=== PATIENT | female | born 1940 | race Caucasian/White ===

== ENCOUNTER 2016-08-21 17:47 | Inpatient (IN) | payer MEDICARE, OTHER ==
[~2016-08-21] VITALS: Ht 165.1 cm; Wt 56.8 kg
[~2016-08-21 17:47] MED LIST: BACITRACIN 50,000 UNITS INJ IRRIG ONE; FENTANYL 100 MCG/2 ML AMP IV ONE; LIDOCAINE 2% SYR 5 ML IV ONE; ONDANSETRON 4 MG VIAL IV PUSH ONE; PROPOFOL 20 ML VIAL IV ONE; ROCURONIUM 50 MG VIAL IV ONE; SUGAMMADEX 200 MG/2 ML VIAL IV ONE
[2016-08-21] MEDS ORDERED: MAG HYDROX 30 ML UDC PO PRN (21:15)
[2016-08-21] MEDS ORDERED: ENOXAPARIN 40 MG/0.4 ML SYR SUBQ SCH (21:15)
[2016-08-21] MEDS ORDERED: SALINE FLUSH 10 ML FLUSH PRN (21:15)
[2016-08-21] MEDS ORDERED: BISACODYL 10 MG SUPP RECTAL PRN (21:15)
[2016-08-21] MEDS ORDERED: BISACODYL EC 5 MG TAB PO PRN (21:15)
[2016-08-21] MEDS ORDERED: ALU/MAG/SIM 30 ML UDC PO PRN (21:15)
[2016-08-21] MEDS ORDERED: TEMAZEPAM 7.5 MG CAP PO PRN (21:15)
[2016-08-21] MEDS: SALINE FLUSH 10 ML FLUSH SCH (21:15)
[2016-08-21] MEDS ORDERED: DEXTROSE 5% SALINE 0.9% 1,000 ML IV SCH (21:35)
[2016-08-21 22:25] VITALS: BP_SYST 151; TEMP 97.7; Ht 165.1 cm; Wt 56.8 kg
[2016-08-21 22:26] VITALS: RESP 20
[2016-08-21] MEDS: DOCUSATE SOD 100 MG CAP PO SCH (22:48)
[2016-08-21] MEDS: SODIUM CHLORIDE 0.9% FLUSH BAG 500 ML IV SCH (22:49)
[2016-08-21] MEDS: MORPHINE 2 MG/ML SYR IV PRN (23:11)
[2016-08-22] VITALS (19 sets, daily range): BP systolic 115–148; RESP 12–20; TEMP 97.3–99.2
[2016-08-22] MEDS: MORPHINE 2 MG/ML SYR IV PRN ×3 (05:55→22:12)
[2016-08-22] MEDS ORDERED: ONDANSETRON 4 MG VIAL ONE (06:41)
[2016-08-22] MEDS ORDERED: CEFAZOLIN 2,000 MG in SODIUM CHLORIDE 0.9% 100 ML IV ONE (07:10)
[2016-08-22] MEDS: SALINE FLUSH 10 ML FLUSH SCH ×3 (08:00→20:00)
[2016-08-22] MEDS: DOCUSATE SOD 100 MG CAP PO SCH ×3 (09:00→21:58)
[2016-08-22] MEDS: MAG HYDROX 30 ML UDC PO SCH (09:00)
[2016-08-22] MEDS ORDERED: ENOXAPARIN 40 MG/0.4 ML SYR SUBQ SCH (09:00)
[2016-08-22] MEDS: CEFTRIAXONE 1 GM in SODIUM CHLORIDE 0.9% 50 ML IV SCH (09:01)
[2016-08-22] MEDS: PANTOPRAZOLE 40 MG VIAL IV SCH (09:02)
[2016-08-22] MEDS ORDERED: LACT RINGERS 1,000 ML IV SCH (10:55)
[2016-08-22] MEDS ORDERED: MIDAZOLAM 2 MG/2 ML INJ IV ONE (10:55)
[2016-08-22] MEDS ORDERED: MORPHINE 2 MG/ML SYR IV PRN (12:00)
[2016-08-22] MEDS ORDERED: ONDANSETRON 4 MG VIAL IV PRN ×2 (12:00→12:30)
[2016-08-22] MEDS ORDERED: MORPHINE 4 MG/ML SYR IV PRN ×2 (12:00→12:30)
[2016-08-22] MEDS ORDERED: MEPERIDINE 25 MG/ML IV PRN (12:00)
[2016-08-22] MEDS ORDERED: DILAUDID 1 MG/ML AMP IV PRN (12:00)
[2016-08-22] MEDS ORDERED: OXYCODONE 5 MG TAB PO PRN (12:00)
[2016-08-22] MEDS ORDERED: MAG HYDROX 30 ML UDC PO PRN (12:30)
[2016-08-22] MEDS ORDERED: D5-1/2-NS W/KCL 20MEQ/L 1,000 ML IV SCH (12:30)
[2016-08-22] MEDS ORDERED: ONDANSETRON 4 MG TAB PO PRN (12:30)
[2016-08-22] MEDS ORDERED: SALINE FLUSH 10 ML FLUSH PRN (12:30)
[2016-08-22] MEDS ORDERED: ZOLPIDEM 5 MG TAB PO PRN (12:30)
[2016-08-22] MEDS: ONDANSETRON 4 MG VIAL IV PRN (13:28)
[2016-08-22] MEDS: PROMETHAZINE 25 MG/ML VIAL IV PRN (15:45)
[2016-08-22] MEDS: CEFAZOLIN 2,000 MG in SODIUM CHLORIDE 0.9% 100 ML IV SCH (18:01)
[2016-08-22] MEDS: TRAMADOL 50 MG TAB PO PRN (19:15)
[2016-08-22] MEDS: SENNA 8.6 MG TAB PO SCH (21:58)
[2016-08-23] MEDS: CEFAZOLIN 2,000 MG in SODIUM CHLORIDE 0.9% 100 ML IV SCH ×3 (00:41→12:52)
[2016-08-23] MEDS: PROMETHAZINE 25 MG/ML VIAL IV PRN ×2 (01:21→13:41)
[2016-08-23] MEDS: MORPHINE 2 MG/ML SYR IV PRN ×3 (02:01→13:20)
[2016-08-23 04:09] VITALS: BP_SYST 130; RESP 16; TEMP 98.7
[2016-08-23] MEDS: SODIUM CHLORIDE 0.9% FLUSH BAG 500 ML IV SCH ×2 (05:52→05:59)
[2016-08-23] MEDS: ENOXAPARIN 30 MG/0.3 ML SYR SUBQ SCH (05:52)
[2016-08-23] MEDS: TRAMADOL 50 MG TAB PO PRN ×2 (05:55→16:54)
[2016-08-23 07:39] VITALS: BP_SYST 135; RESP 18; TEMP 98.5
[2016-08-23] MEDS: SALINE FLUSH 10 ML FLUSH SCH ×4 (08:00→21:12)
[2016-08-23] MEDS: MAG HYDROX 30 ML UDC PO SCH ×2 (08:25→08:50)
[2016-08-23] MEDS: PANTOPRAZOLE 40 MG VIAL IV SCH (08:26)
[2016-08-23] MEDS: CEFTRIAXONE 1 GM in SODIUM CHLORIDE 0.9% 50 ML IV SCH (08:26)
[2016-08-23] MEDS: MULTIVITS/MINERALS (THERAGRAN M) TAB PO SCH (08:26)
[2016-08-23] MEDS: DOCUSATE SOD 100 MG CAP PO SCH ×4 (08:26→21:12)
[2016-08-23] MEDS: SENNA 8.6 MG TAB PO SCH ×2 (08:26→21:11)
[2016-08-23] MEDS: POLYETHYLENE GLYCOL 17 GM PACKET PO SCH (08:26)
[2016-08-23] MEDS: ONDANSETRON 4 MG VIAL IV PRN ×2 (08:35→19:18)
[2016-08-23 12:00] VITALS: BP_SYST 128; RESP 18; TEMP 97.3
[2016-08-23 16:31] VITALS: BP_SYST 126; RESP 20; TEMP 98
[2016-08-23 19:12] VITALS: BP_SYST 143; RESP 16; TEMP 99.4
[2016-08-23 22:37] VITALS: BP_SYST 155; RESP 16; TEMP 98.5
[2016-08-24] VITALS (7 sets, daily range): BP systolic 135–157; RESP 16–20; TEMP 98–100.3
[2016-08-24] MEDS: TRAMADOL 50 MG TAB PO PRN ×4 (00:38→23:54)
[2016-08-24] MEDS: SODIUM CHLORIDE 0.9% FLUSH BAG 500 ML IV SCH ×4 (06:00→22:13)
[2016-08-24] MEDS: ENOXAPARIN 30 MG/0.3 ML SYR SUBQ SCH (06:59)
[2016-08-24] MEDS: SALINE FLUSH 10 ML FLUSH SCH ×4 (08:00→21:28)
[2016-08-24] MEDS: POLYETHYLENE GLYCOL 17 GM PACKET PO SCH (08:41)
[2016-08-24] MEDS: MAG HYDROX 30 ML UDC PO SCH ×2 (08:41→09:00)
[2016-08-24] MEDS: SENNA 8.6 MG TAB PO SCH ×2 (08:42→21:27)
[2016-08-24] MEDS: MULTIVITS/MINERALS (THERAGRAN M) TAB PO SCH (08:42)
[2016-08-24] MEDS: PANTOPRAZOLE 40 MG VIAL IV SCH (08:42)
[2016-08-24] MEDS: CEFTRIAXONE 1 GM in SODIUM CHLORIDE 0.9% 50 ML IV SCH (08:42)
[2016-08-24] MEDS: DOCUSATE SOD 100 MG CAP PO SCH ×4 (08:42→21:28)
[2016-08-24] MEDS: CEFUROXIME 250 MG TAB PO SCH ×2 (11:23→21:27)
[2016-08-24] MEDS: MORPHINE 2 MG/ML SYR IV PRN (15:45)
[2016-08-25] VITALS (7 sets, daily range): BP systolic 127–155; RESP 16–20; TEMP 98.5–99.4
[2016-08-25] MEDS: ENOXAPARIN 30 MG/0.3 ML SYR SUBQ SCH (06:50)
[2016-08-25] MEDS: PANTOPRAZOLE 40 MG TAB PO SCH (06:50)
[2016-08-25] MEDS: SALINE FLUSH 10 ML FLUSH SCH ×4 (08:00→21:43)
[2016-08-25] MEDS: DOCUSATE SOD 100 MG CAP PO SCH ×4 (08:14→21:41)
[2016-08-25] MEDS: MAG HYDROX 30 ML UDC PO SCH ×2 (08:14→09:01)
[2016-08-25] MEDS ORDERED: MISSING DOSE XX ONE (08:20)
[2016-08-25] MEDS: CEFUROXIME 250 MG TAB PO SCH ×2 (09:00→21:41)
[2016-08-25] MEDS: POLYETHYLENE GLYCOL 17 GM PACKET PO SCH (09:02)
[2016-08-25] MEDS: SENNA 8.6 MG TAB PO SCH ×2 (09:02→21:41)
[2016-08-25] MEDS: TRAMADOL 50 MG TAB PO PRN ×4 (09:03→23:07)
[2016-08-25] MEDS: MULTIVITS/MINERALS (THERAGRAN M) TAB PO SCH (09:03)
[2016-08-26 03:50] VITALS: BP_SYST 149; RESP 16; TEMP 98.2
[2016-08-26] MEDS: TRAMADOL 50 MG TAB PO PRN ×2 (03:58→08:05)
[2016-08-26] MEDS: SODIUM CHLORIDE 0.9% FLUSH BAG 500 ML IV SCH ×2 (06:00)
[2016-08-26] MEDS: PANTOPRAZOLE 40 MG TAB PO SCH (06:55)
[2016-08-26] MEDS: ENOXAPARIN 30 MG/0.3 ML SYR SUBQ SCH (06:56)
[2016-08-26 07:25] VITALS: BP_SYST 145; RESP 18; TEMP 98.7
[2016-08-26] MEDS: SALINE FLUSH 10 ML FLUSH SCH ×2 (08:00)
[2016-08-26] MEDS: MAG HYDROX 30 ML UDC PO SCH ×2 (08:06→08:10)
[2016-08-26] MEDS: MULTIVITS/MINERALS (THERAGRAN M) TAB PO SCH (08:06)
[2016-08-26] MEDS: DOCUSATE SOD 100 MG CAP PO SCH ×2 (08:06→08:10)
[2016-08-26] MEDS: CEFUROXIME 250 MG TAB PO SCH (08:06)
[2016-08-26] MEDS: SENNA 8.6 MG TAB PO SCH (08:06)
[2016-08-26] MEDS: POLYETHYLENE GLYCOL 17 GM PACKET PO SCH (08:06)
[2016-08-26 10:06] VITALS: BP_SYST 145; RESP 18; TEMP 98.7
[2016-08-26 11:31] VITALS: BP_SYST 147; RESP 18; TEMP 98.3
== END 2016-08-26 13:00 | disposition home health service (06) | DRG 481 ==
LOC: ENRESERVDT → ENRESERVTM → ER 17:47 → ENPENDDIS 21:13 → EMR 21:13 → 2NO 21:58
PROVIDERS: ADMIT Family Medicine; ATTEND Family Medicine
PROC: 0QH734Z Insertion of Internal Fixation Device into Left Upper Femur, Percutaneous Approach (ICD-10-PCS; principal; 2016-08-22 11:45)
DX: S72.032A Displaced midcervical fracture of left femur, initial encounter for closed fracture (principal); N39.0 Urinary tract infection, site not specified; W10.9XXA Fall (on) (from) unspecified stairs and steps, initial encounter; E55.9 Vitamin D deficiency, unspecified; S40.012A Contusion of left shoulder, initial encounter
CPT/HCPCS: 76000; 80048; 80053; 81001; 83735; 85014; 85018; 85025; 94762; 94799; 99222; 99232